=== PATIENT | female | born 1965 | race African-American/Black ===

== ENCOUNTER 2017-10-25 20:43 | Emergency (ER) | payer OTHER ==
[~2017-10-25] VITALS: Ht 170.2 cm; Wt 52.6 kg
[~2017-10-25 20:43] MED LIST: AMLO1TAB95 PO; ASPI-612 PO; CARV6.252 PO; FURO-69 PO; HYDR12.58 PO; LABE200T4 PO
[2017-10-25 22:27] VITALS: BP 135/90
--- NOTE | 2017-10-25 23:39 | PHYS DOC ---
Past Medical History Past Medical History: CHF, High Cholesterol, Hypertension Past Surgical History: Other Additional Past Surgical Histo: SBO Alcohol Use: Heavy Drug Use: None Adult General Chief Complaint Chief Complaint: POST-OP PROBLEM HPI HPI Patient is a 52 year old [f__sex] who presents with [] Review of Systems Review of Systems Constitutional: Denies fever or chills [] Eyes: Denies change in visual acuity, redness, or eye pain [] HENT: Denies nasal congestion or sore throat [] Respiratory: Denies cough or shortness of breath [] Cardiovascular: No additional information not addressed in HPI [] GI: Denies abdominal pain, nausea, vomiting, bloody stools or diarrhea [] : Denies dysuria or hematuria [] Musculoskeletal: Denies back pain or joint pain [] Integument: Denies rash or skin lesions [] Neurologic: Denies headache, focal weakness or sensory changes [] Endocrine: Denies polyuria or polydipsia [] All other systems were reviewed and found to be within normal limits, except as documented in this note. Current Medications Current Medications Current Medications Medications (Trade) Dose Ordered Sig/Quan Start Time Stop Time Status Last Admin Dose Admin Sodium Chloride 1,000 ml @ 1,000 mls/hr 1X ONCE 10/25/17 23:45 10/26/17 00:44 Cancel Tramadol HCl (Ultram) 50 mg 1X ONCE 10/26/17 00:15 10/26/17 00:16 Allergies Allergies Allergies Coded Allergies Type Severity Reaction Last Updated Verified No Known Drug Allergies 01/07/17 No Physical Exam Physical Exam Constitutional: Well developed, well nourished, no acute distress, non-toxic appearance. [] HENT: Normocephalic, atraumatic, bilateral external ears normal, oropharynx moist, no oral exudates, nose normal. [] Eyes: PERRLA, EOMI, conjunctiva normal, no discharge. [] Neck: Normal range of motion, no tenderness, supple, no stridor. [] Cardiovascular:Heart rate regular rhythm, no murmur [] Lungs & Thorax: Bilateral breath sounds clear to auscultation [] Abdomen: Bowel sounds normal, soft, no tenderness, no masses, no pulsatile masses. [] Skin: Warm, dry, no erythema, no rash. [] Back: No tenderness, no CVA tenderness. [] Extremities: No tenderness, no cyanosis, no clubbing, ROM intact, no edema. [] Neurologic: Alert and oriented X 3, normal motor function, normal sensory function, no focal deficits noted. [] Psychologic: Affect normal, judgement normal, mood normal. [] Current Patient Data Vital Signs Vital Signs Date Time Temp Pulse Resp B/P (MAP) Pulse Ox O2 Delivery O2 Flow Rate FiO2 10/25/17 22:27 98.2 107 16 135/90 (105) 96 Room Air 98.2 EKG EKG [] Radiology/Procedures Radiology/Procedures [] Course & Med Decision Making Course & Med Decision Making Pertinent Labs and Imaging studies reviewed. (See chart for details) [] Dragon Disclaimer Dragon Disclaimer This electronic medical record was generated, in whole or in part, using a voice recognition dictation system. Departure Departure Impression: Primary Impression: Incisional hernia Disposition: HOME, SELF-CARE Condition: STABLE Referrals: NO PCP (PCP) SAMMY EVANS MD Patient Instructions: Hernia, [id number] Scripts Tramadol Hcl (TRAMADOL HCL) 50 Mg Tablet 50 MG PO Q6HRS PRN for PAIN, #10 TAB Prov: DANYELL COLLINS DO 10/25/17 Problem Qualifiers Primary Impression: Incisional hernia Obstruction and gangrene presence: without obstruction or gangrene Qualified Codes: K43.2 - Incisional hernia without obstruction or gangrene DANYELL COLLINS DO Oct 25, 2017 23:39
[2017-10-25] MEDS ORDERED: IV NORMAL SALINE 1000ML BAG 1,000 ML IV ONE (23:45)
[2017-10-25] MEDS ORDERED: TRAM50TA PO (23:57)
[2017-10-26] MEDS ORDERED: traMADol 50 MG TABLET PO ONE (00:15)
== END 2017-10-26 00:35 | disposition home or self-care (01) ==
LOC: ER 20:43
DX: K43.2 Incisional hernia without obstruction or gangrene (principal); E78.00 Pure hypercholesterolemia, unspecified; I11.0 Hypertensive heart disease with heart failure; I50.9 Heart failure, unspecified; F10.20 Alcohol dependence, uncomplicated; Y90.9 Presence of alcohol in blood, level not specified
CPT/HCPCS: 99283; 99285-25